=== PATIENT | female | born 1955 | race Caucasian/White ===

== ENCOUNTER 2019-06-15 17:41 | Inpatient (IN) ==
[2019-06-15 20:45] LABS: Basophils % 0.5 %; Hematocrit 45.6 % (35.3-44.9); Immature Granulocytes % 0.2 % (0-4); Lymphocytes % 16.2 %; Mean Corpuscular HGB Conc 30.7 g/dL (31.6-35.5); Mean Corpuscular Hemoglobin 27.8 pg (28.0-33.3); Mean Corpuscular Volume 90.7 fL (83.0-100.0); Mean Platelet Volume 10.6 fL (9.4-12.4); Monocytes # 0.7 K/mcL (0.0-1.3); Monocytes % 10.3 %; Neutrophils # 4.7 K/mcL (1.6-8.9); Platelet Count 225 K/mcL (140-400); Red Blood Count 5.03 M/mcL (3.82-4.97); Segmented Neutrophils % 72.8 %; White Blood Count 6.4 K/mcL (4.3-11.1)
[2019-06-15 21:05] LABS: Albumin 3.3 g/dL (3.5-5.7); Albumin/Globulin Ratio 1.1 (1.1-2.2); Bilirubin,Direct 0.3 mg/dL (0.0-0.2); Bilirubin,Indirect 0.5 mg/dL (0.0-1.0); Bilirubin,Total 0.8 mg/dL (0.3-1.0); Calcium 8.8 mg/dL (8.6-10.3); Potassium 3.8 mEq/L (3.5-5.1); Total Protein 6.3 g/dL (6.4-8.9)
[2019-06-15 21:11] LABS: Troponin I 0.04 ng/mL (< 0.04)
[2019-06-15] MEDS ORDERED: Furosemide 20 MG/2 ML VIAL IVP ONE (21:34)
[2019-06-16] MEDS ORDERED: Naloxone 0.4 MG/ML INJ IVP PRN (02:08)
[2019-06-16] MEDS ORDERED: Gabapentin 400 MG CAPSULE PO PRN (02:08)
[2019-06-16] MEDS: traMADol 50 MG TABLET PO PRN ×3 (02:41→15:50)
[2019-06-16 05:33] LABS: Hematocrit 40.9 % (35.3-44.9); Mean Corpuscular HGB Conc 30.3 g/dL (31.6-35.5); Mean Corpuscular Hemoglobin 27.6 pg (28.0-33.3); Mean Corpuscular Volume 91.1 fL (83.0-100.0); Mean Platelet Volume 10.6 fL (9.4-12.4); Platelet Count 189 K/mcL (140-400); Red Blood Count 4.49 M/mcL (3.82-4.97); White Blood Count 6.5 K/mcL (4.3-11.1)
[2019-06-16 05:40] LABS: Hemoglobin 12.4 g/dL (11.5-15.4)
[2019-06-16 05:55] LABS: Calcium 8.4 mg/dL (8.6-10.3); Potassium 3.9 mEq/L (3.5-5.1); Troponin I 0.04 ng/mL (< 0.04)
[2019-06-16] MEDS ORDERED: Perflutren Lipid Microsphere 1.3 ML in 0.9 % Sodium Chloride 8.7 ML IVP ONE (08:44)
[2019-06-16 08:49] LABS: Estimated Average Glucose 203 mg/dl
[2019-06-16] MEDS: Furosemide 20 MG/2 ML VIAL IVP SCH (09:28)
[2019-06-16] MEDS: Metoprolol XL (24 HR) Succ 25 MG TAB.ER.24H PO SCH (15:50)
[2019-06-16] MEDS: *HR* Heparin 5,000 UNIT/ML VIAL SQ SCH (17:15)
[2019-06-17] MEDS: traMADol 50 MG TABLET PO PRN ×3 (02:26→21:44)
[2019-06-17] MEDS: *HR* Heparin 5,000 UNIT/ML VIAL SQ SCH ×2 (06:03→18:02)
[2019-06-17 08:10] LABS: Calcium 8.6 mg/dL (8.6-10.3)
[2019-06-17] MEDS: Metoprolol XL (24 HR) Succ 25 MG TAB.ER.24H PO SCH (08:42)
[2019-06-17] MEDS: Furosemide 20 MG/2 ML VIAL IVP SCH (08:42)
[2019-06-18 04:39] LABS: Chol/HDL Ratio 2.7 (0-4.9)
[2019-06-18 04:40] LABS: Calcium 8.5 mg/dL (8.6-10.3); Potassium 3.8 mEq/L (3.5-5.1)
[2019-06-18] MEDS: *HR* Heparin 5,000 UNIT/ML VIAL SQ SCH ×2 (05:46→17:20)
[2019-06-18] MEDS: traMADol 50 MG TABLET PO PRN ×3 (05:52→22:41)
[2019-06-18] MEDS: Metoprolol XL (24 HR) Succ 25 MG TAB.ER.24H PO SCH (07:41)
[2019-06-18] MEDS: Furosemide 20 MG/2 ML VIAL IVP SCH (07:42)
[2019-06-18] MEDS ORDERED: D5% in Water 1,000 ML IVC PRN (12:13)
[2019-06-18] MEDS ORDERED: *HR* Dextrose 50 % in Water (Syg) 50 ML SYRINGE IVP PRN (12:13)
[2019-06-18] MEDS ORDERED: Dextrose Gel 15 GM/37.5 ML TUBE PO PRN ×2 (12:13)
[2019-06-18] MEDS: Insulin LISPRO 300 UNITS/3 ML VIAL SQ SCH (17:20)
[2019-06-18] MEDS: Miconazole 2% ointment 141 APPL/141 GM TUBE TP SCH (17:20)
[2019-06-19] MEDS: *HR* Heparin 5,000 UNIT/ML VIAL SQ SCH ×2 (05:38→17:54)
[2019-06-19 06:06] LABS: Calcium 8.3 mg/dL (8.6-10.3)
[2019-06-19] MEDS: Metoprolol XL (24 HR) Succ 25 MG TAB.ER.24H PO SCH (08:32)
[2019-06-19] MEDS: Miconazole 2% ointment 141 APPL/141 GM TUBE TP SCH (08:33)
[2019-06-19] MEDS: Insulin LISPRO 300 UNITS/3 ML VIAL SQ SCH ×3 (08:33→17:54)
[2019-06-19] MEDS: traMADol 50 MG TABLET PO PRN ×2 (10:26→17:55)
[2019-06-20] MEDS: traMADol 50 MG TABLET PO PRN ×4 (01:27→22:50)
[2019-06-20] MEDS: *HR* Heparin 5,000 UNIT/ML VIAL SQ SCH ×2 (05:07→16:58)
[2019-06-20 06:57] LABS: Calcium 8.3 mg/dL (8.6-10.3)
[2019-06-20] MEDS: Insulin LISPRO 300 UNITS/3 ML VIAL SQ SCH ×3 (08:44→16:58)
[2019-06-20] MEDS: Miconazole 2% ointment 141 APPL/141 GM TUBE TP SCH (08:45)
[2019-06-20] MEDS: Metoprolol XL (24 HR) Succ 25 MG TAB.ER.24H PO SCH (08:45)
[2019-06-20 17:35] LABS: Bilirubin,Urine Small (Negative); Blood,Urine Trace (Negative); Clarity,Urine Cloudy (Clear); Color,Urine Yellow (Yellow); Glucose,Urine (UA) Normal (Normal); Ketones,Urine Negative (Negative); Leukocyte Esterase,Urine Moderate (Negative); Nitrite,Urine Negative (Negative); Protein,Urine >=300 mg/dL (Neg-Trace); Specific Gravity,Urine 1.018 (1.010-1.025); Urobilinogen,Urine Normal (Normal)
[2019-06-20 17:37] LABS: Bacteria,Urine Many per hpf (None-Few); Hyaline Casts,Urine None Seen per lpf (None-Few); Squamous Epithelial Cell,Urine Many per lpf (None-Few); WBC,Urine TNTC per hpf (0-3)
[2019-06-20 17:49] LABS: RBC,Urine 0-3 per hpf (0-3)
[2019-06-20 18:01] LABS: Creatinine,Urine 109 mg/dL; Microalbumin,Urine > 1350 mg/L; Protein/Creatinine Ratio,Urine 2.06 mg/mg (0.00-0.20); Sodium, Urine 55.8 mEq/L
[2019-06-21] MEDS: *HR* Heparin 5,000 UNIT/ML VIAL SQ SCH ×2 (05:38→16:43)
[2019-06-21] MEDS: traMADol 50 MG TABLET PO PRN ×2 (05:42→21:24)
[2019-06-21 06:12] LABS: Hematocrit 38.2 % (35.3-44.9); Hemoglobin 11.6 g/dL (11.5-15.4); Mean Corpuscular HGB Conc 30.4 g/dL (31.6-35.5); Mean Corpuscular Hemoglobin 28.1 pg (28.0-33.3); Mean Corpuscular Volume 92.5 fL (83.0-100.0); Mean Platelet Volume 10.2 fL (9.4-12.4); Platelet Count 182 K/mcL (140-400); Red Blood Count 4.13 M/mcL (3.82-4.97); Red Cell Distribution Width 15.9 % (11.5-14.5); White Blood Count 4.1 K/mcL (4.3-11.1)
[2019-06-21 06:43] LABS: Calcium 8.4 mg/dL (8.6-10.3); Potassium 4.3 mEq/L (3.5-5.1)
[2019-06-21 08:24] LABS: Complement C3 114 mg/dL (87-200); Rheumatoid Factor 17 IU/mL (Less than 14)
[2019-06-21] MEDS: Insulin LISPRO 300 UNITS/3 ML VIAL SQ SCH ×3 (08:26→16:41)
[2019-06-21] MEDS: Metoprolol XL (24 HR) Succ 25 MG TAB.ER.24H PO SCH (08:27)
[2019-06-21] MEDS: Miconazole 2% ointment 141 APPL/141 GM TUBE TP SCH (08:27)
[2019-06-21 09:49] LABS: Vitamin D 25 Hydroxy 7 ng/mL (30-80)
[2019-06-21] MEDS: Cholecalciferol (D-3) 1,000 UNIT (25MCG) TABLET PO SCH (14:18)
[2019-06-21] MEDS: *HR* Acetylcysteine 20% 600 MG/3 ML ORAL SYRINGE PO SCH ×2 (16:41→22:32)
[2019-06-22] MEDS: traMADol 50 MG TABLET PO PRN ×4 (04:15→22:21)
[2019-06-22 05:02] LABS: Hematocrit 38.4 % (35.3-44.9); Hemoglobin 12.2 g/dL (11.5-15.4); Mean Corpuscular HGB Conc 31.8 g/dL (31.6-35.5); Mean Corpuscular Hemoglobin 27.7 pg (28.0-33.3); Mean Corpuscular Volume 87.3 fL (83.0-100.0); Mean Platelet Volume 10.6 fL (9.4-12.4); Platelet Count 201 K/mcL (140-400); Red Cell Distribution Width 15.9 % (11.5-14.5); White Blood Count 4.5 K/mcL (4.3-11.1)
[2019-06-22 05:03] LABS: INR 1.1; Prothrombin Time 12.4 Seconds (9.4-12.1)
[2019-06-22] MEDS: *HR* Heparin 5,000 UNIT/ML VIAL SQ SCH ×2 (05:08→18:00)
[2019-06-22 05:21] LABS: Calcium 8.7 mg/dL (8.6-10.3); Potassium 4.4 mEq/L (3.5-5.1)
[2019-06-22] MEDS: 0.9 % Sodium Chloride 1,000 ML IVC SCH ×3 (08:21→23:57)
[2019-06-22] MEDS: Insulin LISPRO 300 UNITS/3 ML VIAL SQ SCH ×3 (08:21→18:00)
[2019-06-22] MEDS: *HR* Acetylcysteine 20% 600 MG/3 ML ORAL SYRINGE PO SCH ×2 (08:22→23:38)
[2019-06-22] MEDS: Miconazole 2% ointment 141 APPL/141 GM TUBE TP SCH (08:23)
[2019-06-22] MEDS: Cholecalciferol (D-3) 1,000 UNIT (25MCG) TABLET PO SCH (08:24)
[2019-06-22] MEDS: Metoprolol XL (24 HR) Succ 25 MG TAB.ER.24H PO SCH (08:24)
[2019-06-22] MEDS ORDERED: *HR* Heparin 10,000 UNIT/10 ML VIAL ONE (08:38)
[2019-06-22] MEDS ORDERED: Nitroglycerin 1,000 MCG/10 ML VIAL IV ONE (08:39)
[2019-06-22] MEDS ORDERED: Heparin 1,000 UNITS/500 mL 500 ML ONE (08:39)
[2019-06-22] MEDS ORDERED: 0.9 % Sodium Chloride 1,000 ML ONE ×2 (08:39→11:36)
[2019-06-22] MEDS ORDERED: ISOVUE-370 200 ML INFUS..BTL ONE (08:39)
[2019-06-22] MEDS ORDERED: *HR* Midazolam HCl 2 MG/2 ML VIAL ONE (09:33)
[2019-06-22] MEDS ORDERED: *HR* FentaNYL (PF) 100 MCG/2 ML VIAL ONE (09:34)
[2019-06-22] MEDS ORDERED: Acetaminophen 325 MG TABLET PO PRN (12:42)
[2019-06-22] MEDS ORDERED: Ondansetron 4 MG/2 ML VIAL IVP PRN (12:42)
[2019-06-22 15:28] LABS: ANA IgG by ELISA NONE DETECTED (None Detected)
[2019-06-22] MEDS: Aspirin 81 MG TAB.CHEW PO SCH (16:34)
[2019-06-23] MEDS: *HR* Heparin 5,000 UNIT/ML VIAL SQ SCH (05:07)
[2019-06-23] MEDS: traMADol 50 MG TABLET PO PRN (05:07)
[2019-06-23 06:11] LABS: Hematocrit 38.8 % (35.3-44.9); Hemoglobin 11.9 g/dL (11.5-15.4); Mean Corpuscular HGB Conc 30.7 g/dL (31.6-35.5); Mean Corpuscular Hemoglobin 27.9 pg (28.0-33.3); Mean Corpuscular Volume 90.9 fL (83.0-100.0); Mean Platelet Volume 10.2 fL (9.4-12.4); Platelet Count 194 K/mcL (140-400); Red Blood Count 4.27 M/mcL (3.82-4.97); Red Cell Distribution Width 15.9 % (11.5-14.5); White Blood Count 4.1 K/mcL (4.3-11.1)
[2019-06-23 06:26] LABS: Calcium 8.5 mg/dL (8.6-10.3); Potassium 4.4 mEq/L (3.5-5.1)
[2019-06-23 07:33] VITALS: BP 158/81
[2019-06-23] MEDS: Insulin LISPRO 300 UNITS/3 ML VIAL SQ SCH (08:35)
[2019-06-23] MEDS: Miconazole 2% ointment 141 APPL/141 GM TUBE TP SCH (08:35)
[2019-06-23] MEDS: 0.9 % Sodium Chloride 1,000 ML IVC SCH (08:35)
[2019-06-23] MEDS: Aspirin 81 MG TAB.CHEW PO SCH (08:35)
[2019-06-23] MEDS: Cholecalciferol (D-3) 1,000 UNIT (25MCG) TABLET PO SCH (08:35)
[2019-06-23] MEDS: Metoprolol XL (24 HR) Succ 25 MG TAB.ER.24H PO SCH (08:35)
[2019-06-23 20:30] LABS: Urine Collection Volume RANDOM mL
[2019-06-24 03:38] LABS: Alpha 2 Globulin (PEP) 0.83 g/dL (0.48-1.05); Beta Globulin (PEP) 0.84 g/dL (0.48-1.10)
[2019-06-24 12:12] LABS: Serine Protease-3 Antibody 0 AU/mL (0-19)
[2019-06-24 12:33] LABS: IFE Reflexed NOT DONE
== END 2019-06-23 11:43 | disposition home or self-care (01) | DRG 286 ==
LOC: EMEROOARM 17:41 → 2ANU 17:41 → SUATTDRO 06-17 17:22 → 2ANU 06-22 12:37
PROVIDERS: ADMIT Internal Medicine; ATTEND Internal Medicine

== ENCOUNTER 2021-09-08 09:23 | Observation (INO) ==
[2021-09-08] MEDS ORDERED: 0.9 % Sodium Chloride 1,000 ML IV ONE (09:34)
[2021-09-08 11:07] LABS: Influenza A PCR Negative (Negative); Influenza B PCR Negative (Negative); Resp. Syncytial Virus PCR Negative (Negative)
[2021-09-08 11:10] LABS: Bacteria,Urine Few per hpf (None-Few); Bilirubin,Urine Negative (Negative); Blood,Urine Small (Negative); Clarity,Urine Ex.Turbid (Clear); Color,Urine Yellow (Yellow); Glucose,Urine (UA) Normal (Normal); Ketones,Urine Negative (Negative); Leukocyte Esterase,Urine Large (Negative); Mucus,Urine Few per lpf (None-Few); Nitrite,Urine Negative (Negative); Protein,Urine 70 mg/dL (Neg-Trace); Specific Gravity,Urine 1.016 (1.010-1.025); Squamous Epithelial Cell,Urine Few per hpf (None-Few); Urobilinogen,Urine Normal (Normal); WBC,Urine TNTC per hpf (0-3)
[2021-09-08 11:12] LABS: SARS-CoV-2 by PCR (In House) Positive (Negative)
[2021-09-08] MEDS ORDERED: cefTRIAXone 1,000 MG in Water for inj. (sterile) 10 ML IVP ONE (11:14)
[2021-09-08 11:25] LABS: Basophils % 0.2 %; Hematocrit 38.5 % (35.3-44.9); Hemoglobin 11.8 g/dL (11.5-15.4); Immature Granulocytes % 0.5 % (0-4); Lymphocytes # 0.5 K/mcL (0.6-4.6); Mean Corpuscular HGB Conc 30.6 g/dL (31.6-35.5); Mean Corpuscular Hemoglobin 28.1 pg (28.0-33.3); Mean Corpuscular Volume 91.7 fL (83.0-100.0); Mean Platelet Volume 10.1 fL (9.4-12.4); Monocytes # 0.7 K/mcL (0.0-1.3); Monocytes % 5.8 %; Neutrophils # 10.3 K/mcL (1.6-8.9); Platelet Count 206 K/mcL (140-400); Red Cell Distribution Width 13.5 % (11.5-14.5); Segmented Neutrophils % 89.5 %; White Blood Count 11.5 K/mcL (4.3-11.1)
[2021-09-08 11:50] LABS: Troponin I 0.21 ng/mL (< 0.04)
[2021-09-08 12:05] LABS: Albumin 3.6 g/dL (3.5-5.7); Albumin/Globulin Ratio 1.2 (1.1-2.2); Bilirubin,Total 0.5 mg/dL (0.3-1.0); Calcium 8.6 mg/dL (8.6-10.3); Potassium 4.4 mEq/L (3.5-5.1); Total Protein 6.6 g/dL (6.4-8.9)
[2021-09-08] MEDS ORDERED: *HR* Heparin 5,000 UNIT/ML VIAL IVP ONE (12:26)
[2021-09-08] MEDS ORDERED: *HR* Heparin 5,000 UNIT/ML VIAL IVP PRN ×2 (12:26)
[2021-09-08] MEDS ORDERED: Naloxone 0.4 MG/ML INJ IVP PRN (13:13)
[2021-09-08] MEDS ORDERED: Ondansetron 4 MG/2 ML VIAL IVP PRN (13:13)
[2021-09-08] MEDS ORDERED: Dextrose Gel 15 GM/37.5 ML TUBE PO PRN ×2 (13:21)
[2021-09-08] MEDS ORDERED: D5% in Water 1,000 ML IVC PRN (13:21)
[2021-09-08] MEDS ORDERED: *HR* Dextrose 50 % in Water (Syg) 50 ML SYRINGE IVP PRN (13:21)
[2021-09-08] MEDS ORDERED: Perflutren Lipid Microsphere 1.3 ML in 0.9 % Sodium Chloride 8.7 ML IVP PRN ×2 (14:33→14:50)
[2021-09-08] MEDS: Heparin 25,000UNIT/250ML 1/2NS 25,000 UNIT/250 ML IV.SOLN IVC SCH (15:22)
[2021-09-08 15:43] LABS: Hematocrit 34.9 % (35.3-44.9); Hemoglobin 10.6 g/dL (11.5-15.4); Mean Corpuscular HGB Conc 30.4 g/dL (31.6-35.5); Mean Corpuscular Volume 92.3 fL (83.0-100.0); Mean Platelet Volume 9.8 fL (9.4-12.4); Platelet Count 178 K/mcL (140-400); Red Blood Count 3.78 M/mcL (3.82-4.97); Red Cell Distribution Width 13.5 % (11.5-14.5); White Blood Count 9.5 K/mcL (4.3-11.1)
[2021-09-08 15:54] LABS: Prothrombin Time 11.6 Seconds (9.4-12.1)
[2021-09-08 15:56] LABS: Heparin anti-factor XA UFH < 0.04 IU/mL (0.30-0.70)
[2021-09-08] MEDS: Aspirin 81 MG TAB.CHEW PO SCH (17:40)
[2021-09-08] MEDS: carvediloL 6.25 MG TABLET PO SCH (17:40)
[2021-09-08] MEDS: 0.9 % Sodium Chloride 1,000 ML IVC SCH (17:40)
[2021-09-08] MEDS: Insulin LISPRO 300 UNITS/3 ML VIAL SUBQ SCH ×2 (17:40→21:31)
[2021-09-09 01:16] LABS: Basophils % 0.1 %; Hematocrit 30.6 % (35.3-44.9); Hemoglobin 9.6 g/dL (11.5-15.4); Immature Granulocytes % 0.4 % (0-4); Lymphocytes # 0.8 K/mcL (0.6-4.6); Lymphocytes % 10.9 %; Mean Corpuscular HGB Conc 31.4 g/dL (31.6-35.5); Mean Corpuscular Hemoglobin 28.9 pg (28.0-33.3); Mean Corpuscular Volume 92.2 fL (83.0-100.0); Mean Platelet Volume 10.1 fL (9.4-12.4); Monocytes # 0.5 K/mcL (0.0-1.3); Monocytes % 7.3 %; Neutrophils # 5.7 K/mcL (1.6-8.9); Platelet Count 179 K/mcL (140-400); Red Blood Count 3.32 M/mcL (3.82-4.97); Red Cell Distribution Width 13.7 % (11.5-14.5); Segmented Neutrophils % 81.3 %
[2021-09-09 01:33] LABS: Calcium 7.6 mg/dL (8.6-10.3); Magnesium 1.6 mg/dL (1.6-2.6); Phosphorous 4.9 mg/dL (2.7-4.5); Potassium 4.4 mEq/L (3.5-5.1)
[2021-09-09] MEDS ORDERED: Acetaminophen IV 1,000 MG/100 ML BAG IVPB ONE (01:54)
[2021-09-09] MEDS ORDERED: 0.9 % Sodium Chloride 500 ML IVC ONE (07:55)
[2021-09-09] MEDS: carvediloL 6.25 MG TABLET PO SCH ×2 (08:38→16:49)
[2021-09-09] MEDS: Aspirin 81 MG TAB.CHEW PO SCH (08:38)
[2021-09-09] MEDS: cefTRIAXone 1,000 MG in 0.9 % Sodium Chloride Mini Bag 100 ML IVP SCH (08:39)
[2021-09-09] MEDS: Insulin LISPRO 300 UNITS/3 ML VIAL SUBQ SCH ×4 (08:41→20:04)
[2021-09-09] MEDS: 0.9 % Sodium Chloride 1,000 ML IVC SCH ×2 (08:41→16:50)
[2021-09-09 10:17] LABS: Sodium, Urine 49.2 mEq/L
[2021-09-09] MEDS: Heparin 25,000UNIT/250ML 1/2NS 25,000 UNIT/250 ML IV.SOLN IVC SCH (16:50)
[2021-09-10 02:17] LABS: Hematocrit 30.9 % (35.3-44.9); Hemoglobin 9.3 g/dL (11.5-15.4); Mean Corpuscular HGB Conc 30.1 g/dL (31.6-35.5); Mean Corpuscular Volume 93.1 fL (83.0-100.0); Mean Platelet Volume 9.8 fL (9.4-12.4); Platelet Count 159 K/mcL (140-400); Red Blood Count 3.32 M/mcL (3.82-4.97); Red Cell Distribution Width 13.8 % (11.5-14.5); White Blood Count 5.2 K/mcL (4.3-11.1)
[2021-09-10 02:31] LABS: Calcium 7.8 mg/dL (8.6-10.3); Potassium 4.6 mEq/L (3.5-5.1)
[2021-09-10 02:56] LABS: Folate 10.7 ng/mL (3.0-16.0)
[2021-09-10] MEDS: Insulin LISPRO 300 UNITS/3 ML VIAL SUBQ SCH ×3 (08:08→17:09)
[2021-09-10] MEDS: carvediloL 6.25 MG TABLET PO SCH ×2 (09:14→18:57)
[2021-09-10] MEDS: Aspirin 81 MG TAB.CHEW PO SCH (09:14)
[2021-09-10] MEDS: cefTRIAXone 1,000 MG in 0.9 % Sodium Chloride Mini Bag 100 ML IVP SCH (09:15)
[2021-09-10] MEDS ORDERED: Lactobacillus 1 EACH CAP.SPRINK PO SCH (10:45)
[2021-09-10] MEDS ORDERED: Iron Sucrose Complex 400 MG in 0.9 % Sodium Chloride 250 ML IVPB ONE (10:47)
[2021-09-10 16:58] VITALS: BP 175/92; PULSE 92; TEMP 99.1; O2SAT 93
== END 2021-09-10 19:00 | disposition home or self-care (01) ==
LOC: 2ANU 09:23 → EMEROOARM 09:23 → SUATTDRO 15:16 → 2ANU 16:44
PROVIDERS: ADMIT Student in an Organized Health Care Education/Training Program; ATTEND Internal Medicine